=== PATIENT | male | born 1980 | race Caucasian/White ===

== ENCOUNTER 2018-02-22 06:11 | Emergency (ER) | payer BC ==
[2018-02-22] MEDS ORDERED: Acetaminophen/oxyCODONE 325-5 MG Tab PO ONE (07:09)
--- NOTE | 2018-02-22 07:15 | EDM.PDOC ---
ED HPI GENERAL MEDICAL PROBLEM - General Chief Complaint: Lower Extremity Injury/Pain Stated Complaint: BLOOD CLOT? Time Seen by Provider: 02/22/18 07:11 Source of Information: Reports: Patient History Limitations: Reports: No Limitations - History of Present Illness INITIAL COMMENTS - FREE TEXT/NARRATIVE: pt has pain in the rt lower leg. He noted alot of bulging in the veins of the lower leg. He is having increased pain mainly on the lateral aspect of the thigh and it is going down the entire leg. Onset: Other ( started about 4 days ago. ) Duration: Hour(s): Location: Reports: Lower Extremity, Right Associated Symptoms: Reports: Other (Pt has a history of lumbar disc disease and has been receiving epidural injections. 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 (see below) Other Treatments AURICULOTHERAPIST: none right leg Pain Score (Numeric/FACES): 2 - Related Data Allergies Allergy/AdvReac Type Severity Reaction Status Date / Time No Known Allergies Allergy Verified 02/22/18 06:28 Home Meds: Home Meds Omeprazole [Prilosec] 20 mg PO DAILY 03/30/15 [History] metFORMIN HCl [Metformin HCl] 1,000 mg PO BID 03/30/15 [History] Warfarin [Coumadin] 5 mg PO WE 02/07/18 [History] Warfarin [Coumadin] 10 mg PO SUMOTUTHFRSA 02/07/18 [History] Past Medical History HEENT History: Reports: Impaired Vision Cardiovascular History: Reports: High Cholesterol, Hypertension Gastrointestinal History: Reports: Other (See Below) Other Gastrointestinal History: heartburn Musculoskeletal History: Reports: Arthritis, Back Pain, Chronic Endocrine/Metabolic History: Reports: Diabetes, Type II Hematologic History: Reports: Other (See Below) Other Hematologic History: Factor 5 - Infectious Disease History Infectious Disease History: Reports: Chicken Pox Social & Family History - Tobacco Use Smoking Status *Q: Light Tobacco Smoker Years of Tobacco use: 25 Packs/Tins Daily: 0.1 - Caffeine Use Caffeine Use: Reports: Coffee - Recreational Drug Use Recreational Drug Use: No Review of Systems - Review of Systems Review Of Systems: See Below Constitutional: Reports: No Symptoms Eyes: Reports: No Symptoms Ears: Reports: No Symptoms Nose: Reports: No Symptoms Mouth/Throat: Reports: No Symptoms Respiratory: Reports: No Symptoms Cardiovascular: Reports: No Symptoms GI/Abdominal: Reports: No Symptoms Genitourinary: Reports: No Symptoms Musculoskeletal: Reports: Other (pain in the rt lateral thigh, prominent veins on the front of the leg. ) ED EXAM, GENERAL - Physical Exam Exam: See Below Free Text/Narrative:: pt arrived with pain in the rt leg and his veins in the lower legs were bulging. Exam Limited By: No Limitations General Appearance: Alert, Moderate Distress Ears: Normal TMs Nose: Normal Inspection Throat/Mouth: Normal Inspection Head: Atraumatic Neck: Normal Inspection Respiratory/Chest: No Respiratory Distress Cardiovascular: Regular Rate, Rhythm GI/Abdominal: Soft, Non-Tender (Male) Exam: Deferred Rectal (Males) Exam: Deferred Back Exam: Other (pt has pain over the rt buttock and it is going down the lateral aspect of his leg. he has alot of bulging of his veind in the lower leg. He had a epidural injection yesterday for lumbar disc diease. He has been off of his coumadin for 5 days alli a procedure. He is concerned regarding a blood clot. ) Extremities: Normal Inspection Neurological: Alert, Oriented, Normal Cognition Psychiatric: Normal Affect Course - Vital Signs Last Recorded V/S: Last Vital Signs Temp 36.1 C 02/22/18 06:31 Pulse 78 02/22/18 07:22 Resp 17 02/22/18 06:31 BP 154/99 H 02/22/18 07:22 Pulse Ox 95 02/22/18 06:31 - Orders/Labs/Meds Labs: Laboratory Tests 02/22/18 Range/Units 07:12 PT 10.0 (9.5-12.0) sec INR 0.90 (0.80-1.20) Meds: Medications Discontinued Medications Generic Name Dose Route Start Last Admin Trade Name Damian PRN Reason Stop Dose Admin Oxycodone/Acetaminophen 1 tab 02/22/18 07:09 02/22/18 07:14 Percocet 325-5 Mg PO 02/22/18 07:10 1 tab ONETIME ONE Administration - Re-Assessments/Exams Free Text/Narrative Re-Assessment/Exam: 02/22/18 08:07 pt had a US which was neg for clots. Departure - Departure Time of Disposition: 08:00 Disposition: Home, Self-Care 01 Condition: Fair Clinical Impression: Lumbar disc disease - Discharge Information Instructions: Acute Pain, Adult Referrals: Yesica Zhao PA [Primary Care Provider] - Forms: ED Department Discharge Care Plan Goals: kamaljit clark 1 tab q6h prn for pain #6
[2018-02-22 07:22] VITALS: BP 154/99
--- NOTE | 2018-02-22 08:58 | US ---
VL Duplex Lwr Ext Veins Ltd Rt HISTORY: pain in rt lower leg. FINDINGS: Deep venous system of the right lower extremity demonstrates normal blood flow and compressibility th roughout. Normal Doppler waveform variation is seen with respiration and calf compression. No color f low abnormality can be seen. IMPRESSION: No sonographic evidence for DVT right lower extremity.
== END 2018-02-22 08:12 | disposition home or self-care (01) ==
LOC: JP.ED 06:11
DX: M51.9 Unspecified thoracic, thoracolumbar and lumbosacral intervertebral disc disorder (principal); F17.210 Nicotine dependence, cigarettes, uncomplicated; I10 Essential (primary) hypertension; E11.9 Type 2 diabetes mellitus without complications; E78.00 Pure hypercholesterolemia, unspecified; Z79.84 Long term (current) use of oral hypoglycemic drugs; Z79.899 Other long term (current) drug therapy
CPT/HCPCS: 36415; 85610; 93971-26; 93971-RT; 99284-25; A9270-GY

== ENCOUNTER 2018-11-13 05:08 | Emergency (ER) | payer BC ==
--- NOTE | 2018-11-13 05:20 | EDM.PDOC ---
ED HPI GENERAL MEDICAL PROBLEM - General Chief Complaint: Fever Stated Complaint: FEVER/HEADACHE Time Seen by Provider: 11/13/18 05:20 Source of Information: Reports: Patient History Limitations: Reports: No Limitations - History of Present Illness INITIAL COMMENTS - FREE TEXT/NARRATIVE: pt is on doxycyline , predisone, and nebs. He spiked a temp tonight to 100. He is feeling more sob. He has a 4 week history of coughing and being more sob. He has a neb that he is using at home. Onset: Gradual (pt has been coughing for about 4 weeks. ), Other Duration: Hour(s): Location: Reports: Chest Associated Symptoms: Reports: Cough, Fever/Chills, Shortness of Breath - Related Data Allergies Allergy/AdvReac Type Severity Reaction Status Date / Time No Known Allergies Allergy Verified 11/13/18 05:21 Home Meds: Home Meds Omeprazole [Prilosec] 20 mg PO DAILY 03/30/15 [History] metFORMIN HCl [Metformin HCl] 1,000 mg PO BID 03/30/15 [History] Warfarin [Coumadin] 5 mg PO WE 02/07/18 [History] Warfarin [Coumadin] 10 mg PO SUMOTUTHFRSA 02/07/18 [History] Albuterol [Ventolin HFA] 2 puff IN DAILY 11/13/18 [History] Doxycycline Monohydrate 100 mg PO DAILY 11/13/18 [History] predniSONE 20 mg PO DAILY 11/13/18 [History] Past Medical History HEENT History: Reports: Impaired Vision Cardiovascular History: Reports: High Cholesterol, Hypertension Gastrointestinal History: Reports: Other (See Below) Other Gastrointestinal History: heartburn Musculoskeletal History: Reports: Arthritis, Back Pain, Chronic Endocrine/Metabolic History: Reports: Diabetes, Type II Hematologic History: Reports: Other (See Below) Other Hematologic History: Factor 5 - Infectious Disease History Infectious Disease History: Reports: Chicken Pox Social & Family History - Caffeine Use Caffeine Use: Reports: Coffee ED ROS GENERAL - Review of Systems Review Of Systems: See Below Constitutional: Reports: Fever HEENT: Reports: No Symptoms Respiratory: Reports: Shortness of Breath, Cough Cardiovascular: Reports: No Symptoms Endocrine: Reports: No Symptoms GI/Abdominal: Reports: No Symptoms : Reports: No Symptoms Musculoskeletal: Reports: No Symptoms ED EXAM, GENERAL - Physical Exam Exam: See Below Free Text/Narrative:: pt is feeling quite sob and he is breathing rapid and quite short. He feels like he is not able to fill his lungs. He has had a cough for about month ahead of this. He is on predisone and he is on doxycine. He has a nebulizer-- albuterol which he is not using regularly. He only uses it when he is short of breath, Exam Limited By: No Limitations General Appearance: Alert, Anxious, Other (pt is breathing rapidly. ) Ears: Normal TMs Nose: Normal Inspection Throat/Mouth: Normal Inspection Head: Atraumatic Neck: Normal Inspection Respiratory/Chest: Other (pt is breathing quite short and he is not filling his lungs. His o2 sats are very good. He is very mildly wheezy. He has a history of factor 5. He has not enderness in his legs. He is on coumadin. ) Cardiovascular: Regular Rate, Rhythm GI/Abdominal: Soft, Non-Tender (Male) Exam: Deferred Rectal (Males) Exam: Deferred Back Exam: Normal Inspection Extremities: Other (no tenderness present. ) Neurological: Alert, Oriented, Normal Cognition Psychiatric: Anxious Course - Vital Signs Last Recorded V/S: Last Vital Signs Temp 100.4 C H 11/13/18 05:39 Pulse 101 H 11/13/18 05:17 Resp 16 11/13/18 05:17 BP 159/104 H 11/13/18 05:17 Pulse Ox 96 11/13/18 05:17 - Orders/Labs/Meds Labs: Laboratory Tests 11/13/18 11/13/18 11/13/18 Range/Units 05:29 05:29 05:29 WBC 8.8 (4.5-11.0) K/uL RBC 5.55 (4.30-5.90) M/uL Hgb 14.4 (12.0-15.0) g/dL Hct 42.4 (40.0-54.0) % MCV 76 L (80-98) fL MCH 26 L (27-31) pg MCHC 34 (32-36) % Plt Count 225 (150-400) K/uL Neut % (Auto) 75 H (36-66) % Lymph % (Auto) 13 L (24-44) % [place] % (Auto) 8 H (2-6) % Eos % (Auto) 4 (2-4) % Baso % (Auto) 0 (0-1) % PT 17.0 H (9.5-12.0) sec INR 1.59 H (0.80-1.20) Sodium 135 L (140-148) mmol/L Potassium 3.8 (3.6-5.2) mmol/L Chloride 101 (100-108) mmol/L Carbon Dioxide 23 (21-32) mmol/L Anion Gap 14.8 H (5.0-14.0) mmol/L BUN 12 (7-18) mg/dL Creatinine 0.9 (0.8-1.3) mg/dL Est Cr Clr Drug Dosing 123.35 mL/min Estimated GFR (MDRD) > 60 (>60) Glucose 221 H (74-106) mg/dL Calcium 9.0 (8.5-10.1) mg/dL Meds: Medications Discontinued Medications Generic Name Dose Route Start Last Admin Trade Name Wadeq PRN Reason Stop Dose Admin Acetaminophen 650 mg 11/13/18 05:31 11/13/18 05:39 Tylenol PO 11/13/18 05:32 650 mg NOW ONE Administration Albuterol/Ipratropium 3 ml 11/13/18 05:25 11/13/18 05:29 Duoneb 3.0-0.5 Mg/3 Ml NEB 11/13/18 05:26 3 ml ONETIME ONE Administration Ceftriaxone Sodium 1 gm/ 0 gm 11/13/18 06:08 11/13/18 06:17 Lidocaine HCl 2.1 ml IM 11/13/18 06:09 2.1 inj ONETIME ONE Administration - Re-Assessments/Exams Free Text/Narrative Re-Assessment/Exam: 11/15/18 18:55 pt had a normal wbc. He did not have a high eosinophil count. His chest xray did not reveal a infiltrate. He had a tmp of 100 degree. He seemed extremely anxious. Departure - Departure Time of Disposition: 06:03 Disposition: Home, Self-Care 01 Condition: Fair Clinical Impression: Bronchitis, Bronchospasm - Discharge Information Instructions: Bronchospasm, Adult, [id number] Referrals: Yesica Zhao PA [Primary Care Provider] - Forms: ED Department Discharge Care Plan Goals: continue predisone and doxycline. Use nebulizer--albuterol every 4-6 hours during the waking hours, tylenol for temp. Pt should not work tomorrow and a note will be given for work. If not improving follow up with Molly zhao.
[2018-11-13 05:21] VITALS: BP 159/104
[2018-11-13] MEDS ORDERED: Albuterol/Ipratropium 3.0-0.5 MG/3 ML Neb Soln NEB ONE (05:25)
[2018-11-13] MEDS ORDERED: Acetaminophen 325 MG Tab PO ONE (05:31)
--- NOTE | 2018-11-13 06:06 | CRLCR ---
INDICATION: COUGH FOR 4 WEEKS INDICATION: Cough for 4 weeks. TECHNIQUE: Chest 2 views. COMPARISON: None FINDINGS: Cardiovascular and mediastinum: Heart size and vasculature are normal in caliber and appearance. Mediastinum is within normal limits. Lungs and pleural spaces: Lungs are clear. No sign of infiltrate or mass. No sign of pleural effusion. No pneumothorax. Bones and soft tissues: No significant findings. IMPRESSION: Lungs are clear. Dictated by Prosper Galan MD @ 11/13/2018 6:05:13 AM Dictated by: Prosper Galan MD @ 11/13/2018 06:05:19 (Electronically Signed)
[2018-11-13] MEDS ORDERED: cefTRIAXone 1 GM, Lidocaine 1% 2.1 ML IM ONE ×2 (06:08)
== END 2018-11-13 06:54 | disposition home or self-care (01) ==
LOC: JP.ED 05:08
DX: J40 Bronchitis, not specified as acute or chronic (principal); E78.00 Pure hypercholesterolemia, unspecified; I10 Essential (primary) hypertension; E11.9 Type 2 diabetes mellitus without complications; Z79.84 Long term (current) use of oral hypoglycemic drugs; Z79.899 Other long term (current) drug therapy; Z79.01 Long term (current) use of anticoagulants
CPT/HCPCS: 36415; 71046; 80048; 85025; 85610; 94640; 96372; 99283; A9270; J0696; J2001; J7620-GY

== ENCOUNTER 2020-05-03 10:50 | Emergency (ER) | payer BC ==
[2020-05-03 11:13] VITALS: BP 126/92; PULSE 102
[2020-05-03] MEDS ORDERED: Ketorolac 60 MG/2 ML SDV IM ONE (11:20)
--- NOTE | 2020-05-03 11:27 | EDM.PDOC ---
ED HPI GENERAL MEDICAL PROBLEM - General Chief Complaint: Lower Extremity Injury/Pain Stated Complaint: L LEG PAIN Time Seen by Provider: 05/03/20 11:10 Source of Information: Reports: Patient, Old Records History Limitations: Reports: No Limitations - History of Present Illness INITIAL COMMENTS - FREE TEXT/NARRATIVE: 39 yo male slept on his couch last night and noticed when trying to work this morning that he has pain shooting from his L buttocks down to his knee. Feels like a problem he has had on the right in the past. His back does not hurt. No bowel or bladder issues. He tried Flexeril without relief. He is on gabapentin for some chronic back issues and ? herniated lumbar disc. Does not want a note for work, plans on returning to work. 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) (Flexeril without relief) - Related Data Allergies Allergy/AdvReac Type Severity Reaction Status Date / Time No Known Allergies Allergy Verified 05/03/20 11:00 Home Meds: Home Meds Omeprazole [Prilosec] 20 mg PO DAILY 03/30/15 [History] metFORMIN HCl [Metformin HCl] 1,000 mg PO BID 03/30/15 [History] Warfarin [Coumadin] 5 mg PO WE 02/07/18 [History] Warfarin [Coumadin] 10 mg PO SUMOTUTHFRSA 02/07/18 [History] Albuterol [Ventolin HFA] 2 puff IN DAILY 11/13/18 [History] Dulaglutide [Trulicity] 1 injection SQ WEEKLY 05/03/20 [History] Fenofibrate 1 tab PO DAILY 05/03/20 [History] Gabapentin [Neurontin] 1 tab PO BID 05/03/20 [History] glipiZIDE [Glucotrol] 1 tab PO DAILY 05/03/20 [History] lisinopriL [Lisinopril] 1 tab PO DAILY 05/03/20 [History] predniSONE [Prednisone] 20 mg PO BID #10 tablet 05/03/20 [Rx] Past Medical History HEENT History: Reports: Impaired Vision Cardiovascular History: Reports: High Cholesterol, Hypertension Gastrointestinal History: Reports: Other (See Below) Other Gastrointestinal History: heartburn Musculoskeletal History: Reports: Arthritis, Back Pain, Chronic Endocrine/Metabolic History: Reports: Diabetes, Type II Hematologic History: Reports: Other (See Below) Other Hematologic History: Factor 5 - Infectious Disease History Infectious Disease History: Reports: Chicken Pox Social & Family History - Tobacco Use Tobacco Use Status *Q: Current Every Day Tobacco User Years of Tobacco use: 25 Packs/Tins Daily: 1 - Caffeine Use Caffeine Use: Reports: Coffee Review of Systems - Review of Systems Review Of Systems: See Below Constitutional: Reports: No Symptoms GI/Abdominal: Reports: Other (no incontinence) Genitourinary: Denies: Incontinence Musculoskeletal: Denies: Back Pain Skin: Reports: No Symptoms Neurological: Reports: Other (pain shooting down L leg) ED EXAM, GENERAL - Physical Exam Exam: See Below Exam Limited By: No Limitations General Appearance: Alert, WD/WN, No Apparent Distress Extremities: Normal Inspection, Normal Range of Motion, Non-Tender, No Pedal Edema Neurological: Alert, Oriented, CN II-XII Intact, Normal Cognition, No Motor/Sensory Deficits. No: Sensory/Motor Deficit Psychiatric: Normal Affect, Normal Mood Skin Exam: Warm, Dry, Intact, Normal Color, No Rash Course - Vital Signs Last Recorded V/S: Last Vital Signs Temp 35.5 C L 05/03/20 11:12 Pulse 102 H 05/03/20 11:12 Resp 14 05/03/20 11:12 BP 126/92 H 05/03/20 11:12 Pulse Ox 94 L 05/03/20 11:12 - Orders/Labs/Meds Meds: Medications Discontinued Medications Generic Name Dose Route Start Last Admin Trade Name Freq PRN Reason Stop Dose Admin Ketorolac Tromethamine 60 mg 05/03/20 11:20 Toradol IM 05/03/20 11:21 ONETIME ONE Departure - Departure Time of Disposition: 11:30 Disposition: Home, Self-Care 01 Condition: Fair Clinical Impression: Left sided sciatica - Discharge Information *PRESCRIPTION DRUG MONITORING PROGRAM REVIEWED*: No *COPY OF PRESCRIPTION DRUG MONITORING REPORT IN PATIENT [place]IL[place]: No Prescriptions: predniSONE [Prednisone] 20 mg PO BID #10 tablet Instructions: Sciatica, [id number] Referrals: PCP,None [Primary Care Provider] - Additional Instructions: Use the prednisone as directed, take with food. Starting after 5:30 pm today take naproxen sodium(Aleve) 2 every 8 hrs with food. Recheck with your provider later this week. You may continue your gabapentin. Sepsis Event Note (ED) - Evaluation Sepsis Screening Result: No Definite Risk - Focused Exam Vital Signs: Vital Signs Temp Pulse Resp BP Pulse Ox 05/03/20 11:12 35.5 C L 102 H 14 126/92 H 94 L
== END 2020-05-03 11:35 | disposition home or self-care (01) ==
LOC: JP.ED 10:50
DX: M54.32 Sciatica, left side (principal); I10 Essential (primary) hypertension; E78.00 Pure hypercholesterolemia, unspecified; E11.9 Type 2 diabetes mellitus without complications; F17.210 Nicotine dependence, cigarettes, uncomplicated; Z79.01 Long term (current) use of anticoagulants; Z79.84 Long term (current) use of oral hypoglycemic drugs; Z79.899 Other long term (current) drug therapy
CPT/HCPCS: 96372; 99283; J1885

== ENCOUNTER 2022-11-20 16:45 | Emergency (ER) | payer BC ==
[2022-11-20 17:50] LABS: BASOPHILS ABSOLUTE AUTO 0.07 K/uL (0.00-0.10); BASOPHILS PERCENT AUTO 0.6 % (0.1-1.3); EOSINOPHILS ABSOLUTE AUTO 0.11 K/uL (0.00-0.40); EOSINOPHILS PERCENT AUTO 0.9 % (0.0-5.4); HEMATOCRIT 43.3 % (38.4-49.7); HEMOGLOBIN 14.6 g/dL (12.9-16.9); IMMATURE GRAN ABSOLUTE AUTO 0.05 K/uL (0.00-0.23); IMMATURE GRAN PERCENT AUTO 0.4 % (0.0-0.7); LYMPHOCYTES ABSOLUTE AUTO 1.77 K/uL (0.8-3.3); MEAN CORPUSCULAR HEMOGLOBIN 25.7 pg (31.6-35.5); MEAN CORPUSCULAR HGB CONC 33.7 g/dL (31.6-35.5); MEAN CORPUSCULAR VOLUME 76.2 fL (81.4-99.0); MONOCYTES ABSOLUTE AUTO 0.94 K/uL (0.20-0.90); MONOCYTES PERCENT AUTO 7.4 % (3.3-12.6); NEUTROPHILS ABSOLUTE AUTO 9.72 K/uL (1.0-7.6); NEUTROPHILS PERCENT AUTO 76.7 % (40.0-78.1); PLATELET COUNT,PLT 190 K/uL (130-375); RED BLOOD CELL COUNT 5.68 M/uL (4.14-5.76); WHITE BLOOD CELL COUNT,WBC 12.7 K/uL (3.2-11.0)
[2022-11-20 18:14] LABS: A/G RATIO 0.7 (1.2-2.2); ALANINE AMINOTRANSFERASE,ALT 28 U/L (12-78); ALBUMIN 3.4 g/dL (3.4-5.0); ALKALINE PHOSPHATASE 54 U/L (46-116); ASPARTATE AMNIOTRANSFERASE,AST 14 U/L (15-37); BILIRUBIN TOTAL 0.7 mg/dL (0.2-1.0); BLOOD UREA NITROGEN,BUN 8 mg/dL (7-18); C-REACTIVE PROTEIN 21.31 mg/dL (0.0-0.3); CHLORIDE,CL 95 mmol/L (100-108); CREATININE 0.9 mg/dL (0.8-1.3); EST CRCL DRUG DOSING (CG) 118.56 mL/min; ESTIMATED GFR 110 mL/min (>60); GLUCOSE RANDOM 267 mg/dL (74-106); POTASSIUM,K 4.3 mmol/L (3.6-5.2); SODIUM,NA 132 mmol/L (140-148)
[2022-11-20 18:19] LABS: ANION GAP 16.3 mmol/L (5.0-14.0); CARBON DIOXIDE,CO2 25 mmol/L (21-32)
[2022-11-20 18:31] LABS: SEDIMENTATION RATE MANUAL 35 mm/hr (0-20)
[2022-11-20] MEDS ORDERED: Azithromycin 250 MG Tab PO ONE (19:24)
[2022-11-20] MEDS ORDERED: Sodium Chloride 0.9% 10 ML Syringe FLUSH PRN (20:19)
[2022-11-20] MEDS ORDERED: Sodium Chloride 0.9% 10 ML Syringe FLUSH ONE (20:44)
[2022-11-20] MEDS ORDERED: Iopamidol 755 Mg/ML 100 ML Bottle IV SCH (20:45)
[2022-11-20] MEDS ORDERED: Sodium Chloride 0.9% 75 ML IV SCH (20:45)
[2022-11-20] MEDS ORDERED: Rivaroxaban 15 MG Tab PO STA (23:41)
[2022-11-20 23:49] VITALS: BP 152/83; PULSE 82
== END 2022-11-21 00:04 | disposition home or self-care (01) ==
LOC: JP.ED 16:45
DX: I26.99 Other pulmonary embolism without acute cor pulmonale (principal); I10 Essential (primary) hypertension; E11.9 Type 2 diabetes mellitus without complications; Z88.8 Allergy status to other drugs, medicaments and biological substances; Z79.899 Other long term (current) drug therapy; Z79.82 Long term (current) use of aspirin; Z87.891 Personal history of nicotine dependence
CPT/HCPCS: 36415; 71046; 71275; 80053; 84484; 85025; 85379; 85651; 86140; 93005; 99285; A9270; J3490; Q9967